=== PATIENT | male | born 1990 | race Two or more races ===

== ENCOUNTER 2017-06-28 09:42 | Observation (INO) | payer OTHER ==
--- NOTE | 2017-06-28 09:49 | EDPHY ---
H & P Stated Complaint: N/V/D periumbilical moe since ~7am today Time Seen by Provider: 06/28/17 09:48 HPI/ROS: HPI: This is a 26-year-old male who presents with Chief Complaint: N/V/D periumbilical pain since ~7 am today Location:GI Quality:nausea, vomiting, diarrhea Duration: 5 hr ago Signs and Symptoms: no fever, + nausea, + vomiting, no hematemesis, no blood in stool, no abdominal bloating, + diarrhea, no back pain, no urinary symptoms, no testicular/groin pain, no indigestion, no chest pain, no shortness of breath Timing: Acute, constant, worsening Severity: Moderate to severe Context: Patient is generally healthy around 4:00 a.m. this morning he had sudden onset of nausea, with multiple episodes of vomiting followed by diarrhea up to 3 times, nonbloody in nature, and chills and fatigue. Within 1-2 hours he developed periumbilical cramping pain but within the last hour has moved to the right lower quadrant and become constant, moderate in intensity. Patient has no concerns of food poisoning. He is extremely worried it may be his appendix. Last meal was yesterday evening for dinner around 10:30 p.m. consisting of chips and guacamole. Modifying Factors: None Comment: ROS: see HPI Constitutional: No fever, no chills, no weight loss Eyes: No blurred vision Respiratory: No shortness of breath, no cough Cardiovascular: No chest pain, no palpitations Gastrointestinal: + nausea, + vomiting, + diarrhea, no hematemesis, no blood in stool Genitourinary: No dysuria, no blood in urine Extremities: No myalgias, no edema Neurologic: No weakness, no numbness Skin: No rashes, no petechiae Hematologic: No bruising, no bleeding MEDICAL/SURGICAL/SOCIAL HISTORY: Medical history: Generally healthy. Does not take any regular medications. Surgical history: Denies Social history: Student. CONSTITUTIONAL: awake and alert, no obvious distress HEENT: Atraumatic and normocephalic, PERRL, EOMI. Tympanic membranes clear. Oropharynx clear, no exudate and moist pink mucosa. Airway patent. No lymphadenopathy. No meningismus. Cardiovascular: Normal S1/S2, regular rate, regular rhythm, without murmur rub or gallop. PULMONARY/CHEST: Symmetrical and nontender. Clear to auscultation bilaterally. Good air movement. No accessory muscle usage. ABDOMEN: Soft, nondistended, moderate periumbilical and right lower quadrant tenderness, + rebound, + guarding, no peritoneal signs, no masses or organomegaly. No CVAT. EXTREMITIES: 2/2 pulses, strength 5/5, no deformities, no clubbing, no cyanosis or edema. NEUROLOGICAL: no focal neuro deficits. GCS 15. SKIN: Warm and dry, no erythema. no rash. Good capillary refill. Source: Patient Exam Limitations: No limitations - Personal History Current Tetanus/Diphtheria Vaccine: Unsure Current Tetanus Diphtheria and Acellular Pertussis (TDAP): Unsure - Medical/Surgical History Hx Asthma: No Hx Chronic Respiratory Disease: No Hx Diabetes: No Hx Cardiac Disease: No Hx Renal Disease: No Hx Cirrhosis: No Hx Alcoholism: No Hx HIV/AIDS: No Hx Splenectomy or Spleen Trauma: No Other PMH: denies. no previous surgeries - Social History Smoking Status: Current some day smoker Constitutional: Initial Vital Signs Temperature (C) 37.2 C 06/28/17 09:45 Heart Rate 78 06/28/17 09:45 Respiratory Rate 18 06/28/17 09:45 Blood Pressure 102/88 H 06/28/17 09:45 O2 Sat (%) 95 06/28/17 09:45 O2 Delivery Mode Room Air Allergies/Adverse Reactions: No Known Allergies Allergy (Unverified 06/28/17 09:45) Home Medications: Medication Instructions Recorded NK [No Known Home Meds] 06/28/17 Medical Decision Making ED Course/Re-evaluation: Labs, IV fluids, urinalysis, IV medications, limited abdominal ultrasound to evaluate for appendicitis Given 2 L normal saline, 0.5 mg IV Dilaudid, IV Zofran and IV Invanz with adequate relief of pain Labs reviewed: WBC 16 K with left shift Called by Radiology who advises that ultrasound shows appendicitis measuring at 1 cm noncompressible. 1050: ED decision to consult. Spoke with General surgery, Dr. Crawford, who kindly agrees to consult on patient and take to the operating room. Requests 1 g of Invanz. This patient was seen under the supervision of my secondary supervising physician. I evaluated care for this patient independently. Differential Diagnosis: Abdominal pain including but not limited to appendicitis, gastroenteritis, gastritis and urinary tract infection. - Data Points Laboratory Results: Laboratory Results 06/28/17 09:57 06/28/17 09:57 06/28/17 06/28/17 09:57 09:57 WBC 16.08 10^3/uL H 10^3/uL (3.80-9.50) RBC 5.68 10^6/uL 10^6/uL (4.40-6.38) Hgb 14.5 g/dL g/dL (13.7-17.5) Hct 43.2 % % (40.0-51.0) MCV 76.1 fL L fL (81.5-99.8) MCH 25.5 pg L pg (27.9-34.1) MCHC 33.6 g/dL g/dL (32.4-36.7) RDW 13.7 % % (11.5-15.2) Plt Count 237 10^3/uL 10^3/uL (150-400) MPV 10.7 fL fL (8.7-11.7) Neut % (Auto) 84.6 % H % (39.3-74.2) Lymph % (Auto) 7.3 % L % (15.0-45.0) Dooly % (Auto) 7.3 % % (4.5-13.0) Eos % (Auto) 0.1 % L % (0.6-7.6) Baso % (Auto) 0.4 % % (0.3-1.7) Nucleat RBC Rel Count 0.0 % % (0.0-0.2) Absolute Neuts (auto) 13.61 10^3/uL H 10^3/uL (1.70-6.50) Absolute Lymphs (auto) 1.18 10^3/uL 10^3/uL (1.00-3.00) Absolute Monos (auto) 1.17 10^3/uL H 10^3/uL (0.30-0.80) Absolute Eos (auto) 0.01 10^3/uL L 10^3/uL (0.03-0.40) Absolute Basos (auto) 0.06 10^3/uL 10^3/uL (0.02-0.10) Absolute Nucleated RBC 0.00 10^3/uL 10^3/uL (0-0.01) Immature Gran % 0.3 % % (0.0-1.1) Immature Gran # 0.05 10^3/uL 10^3/uL (0.00-0.10) Sodium 139 mEq/L mEq/L (135-145) Potassium 4.7 mEq/L mEq/L (3.5-5.2) Chloride 104 mEq/L mEq/L (97-110) Carbon Dioxide 22 mEq/l mEq/l (22-31) Anion Gap 13 mEq/L mEq/L (8-16) BUN 15 mg/dL mg/dL (7-23) Creatinine 0.8 mg/dL mg/dL (0.7-1.3) Estimated GFR > 60 Glucose 117 mg/dL H mg/dL (70-100) Calcium 9.9 mg/dL mg/dL (8.5-10.4) Total Bilirubin 1.0 mg/dL mg/dL (0.1-1.4) Conjugated Bilirubin 0.5 mg/dL mg/dL (0.0-0.5) Unconjugated Bilirubin 0.5 mg/dL mg/dL (0.0-1.1) AST 41 IU/L IU/L (17-59) ALT 31 IU/L IU/L (21-72) Alkaline Phosphatase 70 IU/L IU/L (38-126) Total Protein 8.0 g/dL g/dL (6.3-8.2) Albumin 5.1 g/dL H g/dL (3.5-5.0) Lipase 169 IU/L IU/L (23-300) Specimen Hemolysis 130 Medications Given: Discontinued Medications Hydromorphone HCl (Dilaudid) 0.5 mg IVP EDNOW ONE Stop: 06/28/17 09:52 Last Admin: 06/28/17 10:03 Dose: 0.5 mg Sodium Chloride (Ns) 1,000 mls @ 0 mls/hr IV EDNOW ONE; Wide Open PRN Reason: Protocol Stop: 06/28/17 09:52 Last Admin: 06/28/17 10:03 Dose: 1,000 mls Ondansetron HCl (Zofran) 4 mg IVP EDNOW ONE Stop: 06/28/17 09:52 Last Admin: 06/28/17 10:03 Dose: 4 mg Departure - Departure Disposition: To OP Cath/Surgery Clinical Impression: Appendicitis Qualifiers: Appendicitis type: acute appendicitis Acute appendicitis type: with localized peritonitis Qualified Code(s): K35.3 - Acute appendicitis with localized peritonitis Condition: Fair
[2017-06-28] MEDS ORDERED: HYDROmorphONE/DILAUDID 1 MG/ML INJ IVP ONE ×2 (09:51→11:59)
[2017-06-28] MEDS ORDERED: ONDANSETRON 4 MG/2 ML VIAL IVP ONE ×2 (09:51→12:13)
[2017-06-28] MEDS ORDERED: NS 1,000 ML IV ONE ×3 (09:51→10:58)
[2017-06-28 10:12] LABS: PLATELET COUNT 237 10^3/uL (150-400)
[2017-06-28] MEDS ORDERED: ERTAPENEM 1 GM VIAL IM ONE (10:59)
[2017-06-28] MEDS ORDERED: ERTAPENEM 1 GM VIAL IV ONE (11:16)
[2017-06-28] MEDS ORDERED: HYDROmorphONE/DILAUDID 1 MG/ML INJ IVP PRN (12:22)
[2017-06-28] MEDS ORDERED: ONDANSETRON 4 MG/2 ML VIAL IVP PRN ×2 (12:22→17:07)
--- NOTE | 2017-06-28 13:02 | GHP ---
[f rep st] PREOP HISTORY AND PHYSICAL DATE OF ADMISSION: 06/28/2017 ADMITTING DIAGNOSIS: Acute appendicitis with appendicolith, Sickle Cell trait, COATS syndrome HISTORY: The patient is a 26-year-old white male, who was in his usual state of good health until 5:00 am when he was awoken from sleep. He had an urge to move his bowels. He also vomited. He had the onset of epigastric pain which was sharp and cramping. This continued as a cycle every 20-30 minutes, bowel movement and vomiting. Became worse and worse. Approximately 9:30 this morning , it moved to the right lower quadrant. He then presented to the emergency room. An ultrasound showed a noncompressible tubular structure in the right lower quadrant. His white count was 16.8, 85% neutrophils. There is no history of recent upper respiratory tract infection. He has had some diarrhea in the past 2 weeks. There is no history of inflammatory bowel disease, though he does have a cousin who may have Crohn's. There are no prior similar abdominal symptoms, though he did have abdominal pain which prompted an evaluation before age 11. Nothing was found. He has had no abdominal surgery. He has had no antibiotics in the last 6 months or travel outside the [place], except for a very brief (less than 24 hours) time in [place]. SOCIAL HISTORY: He does not smoke cigarettes, but does smoke marijuana approximately 2 times per week. He does not drink much, but admits to 5-6 beers for the [employer]. ALLERGIES: There is a question of a penicillin allergy from a scratch test. This was not disclosed initially, and he did receive Invanz, but so far had not appeared to have any reaction to the Invanz. He does have nausea with post anesthesia. MEDICATIONS: He is not currently take any medications. 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 He has had cryo surgery twice. He has had laser surgery once. He has been treated for macular holes twice. His vision is 20/150 in his right eye and there is no further intervention suggested. There is no history of glaucoma. He does not wear glasses. Other surgeries have included a tonsillectomy and adenoidectomy. He has had myringotomy tubes twice. He had a failed root canal which resulted in an apiectomy. He has had wisdom teeth extractions. PAST MEDICAL HISTORY: No history of rheumatic fever, tuberculosis, hepatitis, or transfusions. REVIEW OF SYSTEMS: He has had 1 concussion. He is factor V Leiden test negative. There are no limits on his activities. No history of steroid use. He is sickle cell trait positive. FAMILY HISTORY: His mother is 54 years old. She did have a stroke. She is Factor V Leiden positive. His father is 54 and alive and well, but perhaps prediabetic. He has an older sister who is 27, and a younger sister who is 23, who may have Brina's thyroiditis. There is no history of bleeding disorders. He does have his nausea with anesthesia. There is the family history of the coagulation issue with Factor V Leiden. PHYSICAL EXAMINATION: GENERAL: He is awake and alert. He is in mild distress. HEENT: His skull is normocephalic and atraumatic. NECK: Soft, nontender without cervical or supraclavicular lymphadenopathy. There is no axillary or inguinal lymphadenopathy. His thyroid is not enlarged. LUNGS: Clear to auscultation. CARDIAC: Shows S1, S2 to be normal with a normal split of S2. There are no murmurs, rubs, or gallops. ABDOMEN: Tender with cough, just inferior to McBurney's point at a level of 8/10. Psoas sign is negative. Obturator sign is positive. Bowel sounds are distinctly hypoactive. He is tender to palpation as follows: Left upper quadrant 4/10, left mid abdomen 5, left lower quadrant, 5, epigastrium 4, periumbilical area 6, suprapubic area 7, right upper quadrant 5, right mid abdomen 6, right lower quadrant 7. LABORATORY DATA: As mentioned above. His white blood cell count is 16.8. Note is made his hematocrit is 43. His MCV is low at 76. His MCHC is low at 25. His chemistry showed glucose elevated at 117. Urinalysis is still pending. The ultrasound report does show an enlarged noncompressible appendix with appendicolith at its base. PLAN: Will plan a laparoscopic appendectomy. /[id number]/MODL MTDD
[2017-06-28] MEDS ORDERED: LR 1,000 ML IV ONE (13:59)
[2017-06-28] MEDS: LR 1,000 ML IV SCH ×2 (14:02→20:30)
--- NOTE | 2017-06-28 14:42 | PDANEPAE ---
ANE History of Present Illness acute appendicitis acute appy ANE Past Medical History - Cardiovascular History Hx Hypertension: No Hx Arrhythmias: No Hx Chest Pain: No Hx Coronary Artery / Peripheral Vascular Disease: No Hx CHF / Valvular Disease: No Hx Palpitations: No - Pulmonary History Hx COPD: No Hx Asthma/Reactive Airway Disease: No Hx Recent Upper Respiratory Infection: No Hx Oxygen in Use at Home: No Hx Sleep Apnea: No - Endocrine History Hx Diabetes: No Hypothyroid: No Hyperthyroid: No Obesity: no - Renal History Hx Renal Disorders: No - Liver History Hx Hepatic Disorders: No - Neurological & Psychiatric Hx Hx Neurological and Psychiatric Disorders: No - Chronic Pain History Chronic Pain: No ANE Review of Systems Review of Systems: - Exercise capacity Exercise capacity: >=4 METS - Systems Constitutional: Reports: chills, malaise Gastrointestinal: Reports: abdominal pain ANE Patient History - Allergies Allergies/Adverse Reactions: Penicillins Allergy (Verified 06/28/17 11:18) - Home Medications Home Medications: Herbals/Supplements -Info Only 1 ea PO DAILY 06/28/17 [Last Taken Unknown] - NPO status NPO Status: no food or drink >8 hours NPO Since - Liquids (Date): 06/27/17 NPO Since - Liquids (Time): 23:00 NPO Since - Solids (Date): 06/27/17 NPO Since - Solids (Time): 20:00 - Anes Hx Anes Hx: post operative nausea - Smoking Hx Smoking Status: Current some day smoker Marijuana use: Yes - Alcohol Use Alcohol Use: Occasionally - Family Anes Hx Family Anes Hx: none ANE Labs/Vital Signs - Labs Result Diagrams: 06/28/17 09:57 06/28/17 09:57 - Vital Signs Vital Signs: reviewed preoperatively; see RN documention for details Blood Pressure: 114/80 Heart Rate: 66 Respiratory Rate: 18 O2 Sat (%): 95 Height: 187.96 cm Weight: 79.379 kg ANE Physical Exam - Airway Neck exam: FROM Mallampati Score: Class 1 - Pulmonary Pulmonary: no respiratory distress - Cardiovascular Cardiovascular: regular rate and rhythym - ASA Status ASA Status: II, E ANE Anesthesia Plan Anesthesia Plan: general endotracheal anesthesia
[2017-06-28] MEDS ORDERED: MIDAZOLAM 2 MG/2 ML VIAL IVP ONE (14:43)
[2017-06-28] MEDS ORDERED: fentaNYL 100 MCG/2 ML INJ ONE ×5 (14:54→17:09)
[2017-06-28] MEDS: fentaNYL 100 MCG/2 ML INJ IVP PRN ×2 (15:01→17:10)
[2017-06-28] MEDS ORDERED: HEPARIN 5,000 UNIT/0.5 ML SYR ONE (15:35)
[2017-06-28] MEDS ORDERED: BACITRACIN 50,000 UNITS/10 ML SYR IRR ONE (15:36)
[2017-06-28] MEDS ORDERED: LIDOCAINE 2% 5 ML SDV ONE (15:46)
[2017-06-28] MEDS ORDERED: PROPOFOL 200 MG/20 ML VIAL ONE (15:46)
[2017-06-28] MEDS ORDERED: ROCURONIUM 50 MG/5 ML VIAL ONE (15:46)
[2017-06-28] MEDS ORDERED: KETOROLAC 30 MG/1 ML SDV ONE (16:17)
[2017-06-28] MEDS ORDERED: DEXAMETHASONE 4 MG/ML VIAL ONE ×2 (16:17→16:18)
[2017-06-28] MEDS ORDERED: ONDANSETRON 4 MG/2 ML VIAL ONE (16:18)
[2017-06-28] MEDS ORDERED: SUGAMMADEX SODIUM 200 MG/2 ML VIAL IVP ONE (16:44)
[2017-06-28] MEDS ORDERED: HYDROCODONE/APAP 5/325 TAB PO PRN (17:07)
[2017-06-28] MEDS ORDERED: NALOXONE HCL 0.4 MG/ML INJ IVP PRN (17:07)
[2017-06-28] MEDS ORDERED: PROMETHAZINE HCL 25 MG/ML INJ IVP PRN (17:07)
[2017-06-28] MEDS ORDERED: OXYCODONE/APAP 5/325 TAB PO PRN (17:07)
--- NOTE | 2017-06-28 17:07 | POSTANESTH ---
Post Anesthetic Evaluation Cardiovascular Status: Normal, Stable Respiratory Status: Normal, Stable Level of Consciousness/Mental Status: Can Participate in Eval Pain Control: Adequate, Prn Tx Ordered Nausea/Vomiting Control: Adequate, Prn Tx Ordered Complications Possibly Related to Anesthesia: None Noted
[2017-06-28] MEDS ORDERED: HYDROmorphONE/DILAUDID 1 MG/ML INJ ONE (17:13)
--- NOTE | 2017-06-28 17:14 | POSTOPPROG ---
Post Op Note Date of Operation: 06/28/17 Surgeon: Coleman Crawford Anesthesia: GET(General Endotracheal) Pre-op Diagnosis: acute appendicitis with appendicolith Post-op Diagnosis: acute unruptured appendicitis with appendicolith Indication: acute appendicitis with appendicolith Procedure: laparoscopic appendectomy Findings: acute unruptured appendicitis with appendicolith Inf/Abcess present in the surg proc area at time of surgery?: No EBL: Minimal Total fluids administered: 650 Complications: none Specimen(s): appendix
[2017-06-28] MEDS: HYDROmorphONE/DILAUDID 1 MG/ML INJ IVP PRN ×2 (17:22→17:39)
[2017-06-28] MEDS ORDERED: fentaNYL 100 MCG/2 ML INJ IVP PRN (17:25)
[2017-06-28] MEDS: ACETAMINOPHEN 500 MG TAB PO SCH ×2 (17:52→20:25)
[2017-06-28] MEDS: KETOROLAC 15 MG/1 ML SDV IVP SCH (17:55)
--- NOTE | 2017-06-28 19:09 | GOP ---
[f rep st] OPERATIVE REPORT DATE OF OPERATION: 06/28/2017 SURGEON: Coleman Crawford MD ANESTHESIA: General endotracheal. PREOPERATIVE DIAGNOSIS: Acute appendicitis with appendicolith. POSTOPERATIVE DIAGNOSIS: Acute unruptured appendicitis with appendicolith. PROCEDURE PERFORMED: Laparoscopic appendectomy. FINDINGS: Acute unruptured appendicitis with appendicolith. SPECIMENS: Appendix ESTIMATED BLOOD LOSS: Minimal. INDICATIONS: Acute appendicitis with appendicolith. DESCRIPTION OF PROCEDURE: The patient was placed on the operating table in supine position. After induction of adequate general endotracheal anesthesia, the patient was carefully clipped, prepped, and draped. A surgical time-out was carried out and agreed to by all members of the operative team. Curvilinear incision was planned at the umbilicus. Transverse incision was planned in the suprapubic area. Oblique incision was planned in the left lower quadrant. The skin was incised at all 3 sites. At the umbilical level, the curvilinear incision at the umbilicus was deepened. This was done with a spreading technique to expose the anterior rectus sheath which was elevated between Allis clamps. It was divided in the midline and a pursestring of #0 PDS was placed. The peritoneum was entered. An 11/12 mm disposable Shereen trocar was positioned. Intra-abdominal insufflation was carried out to 15 mmHg. 5 mm ports were placed both in the left lower quadrant and the suprapubic areas. The appendix was identified. Omentum had been wrapped around it and was adherent to it. This was carefully stripped back. The mesoappendix was grasped and the appendix was elevated. The mesoappendix was divided with the Harmonic scalpel down to the appendiceal base. A powered 35 mm Endo-DENISA stapler was used to transect the appendix with a cuff of cecum. The appendix was delivered in an EndoCatch bag. There was 1 bleeding point on the transection line. This was carefully elevated with a right-angle grasper and an Endoloop was applied. This provided complete hemostasis. Irrigation with heparin and Ancef-containing irrigant was carried out. The small bowel was carefully run for a distance of 3 feet. There was very minimal mesenteric adenitis identified. There was no evidence of a Meckel diverticulum. The abdomen was still irrigated with Ancef and heparin-containing irrigant. All ports removed under direct vision. Inverted simple suture #0 PDS was placed in the midpoint of the midline infraumbilical fascial incision. This was tied. The pursestring for this wound was now tied. The subcutaneous tissue was well irrigated. Hemostasis found to be excellent. At all incisions , inverted simple sutures of 4-0 Vicryl were placed everting the skin. Mastisol and Steri-Strips were positioned. Band-Aids were positioned. The patient was transferred to recovery in stable and satisfactory condition. FLUIDS: 650 cc. COMPLICATIONS: None. /[id number]/MODL MTDD
[2017-06-29] MEDS: KETOROLAC 15 MG/1 ML SDV IVP SCH ×3 (00:56→13:24)
[2017-06-29] MEDS: ACETAMINOPHEN 500 MG TAB PO SCH ×2 (05:23→13:25)
[2017-06-29 07:49] VITALS: RESP 12
[2017-06-29 11:20] VITALS: BP 114/68; PULSE 77; TEMP 98.1; O2SAT 96
--- NOTE | 2017-06-29 12:46 | SOAPPROG ---
SOAP Progress Note Assessment/Plan: pod#1 06/29/17 12:43 Assessment: Doing well. Eating, passing gas, pain controlled Plan: Home today Subjective: No complaints Objective: Vital Signs Temp Pulse Resp BP Pulse Ox 36.7 C 77 12 114/68 96 06/29/17 11:18 06/29/17 11:18 06/29/17 11:18 06/29/17 11:18 06/29/17 11:18 06/28/17 06/29/17 06/30/17 05:59 05:59 05:59 Intake Total 4070 Output Total 5 Balance 4065 - Time Spent With Patient Time Spent With Patient: 15 Physical Exam - Physical Exam General Appearance: WD/WN, alert, no apparent distress EENT: PERRL/EOMI, normal ENT inspection, pharynx normal, TMs normal Neck: non-tender, full range of motion, supple, normal inspection Respiratory: chest non-tender, lungs clear, normal breath sounds Cardiac/Chest: normal peripheral pulses, regular rate, rhythm Abdomen: normal bowel sounds, non-tender, soft, other (incisions clean and dry, steristrips in place) Male Genitalia: deferred Rectal: deferred Back: Normal inspection Skin: normal color, warm/dry Extremities: normal range of motion, non-tender, normal inspection, normal capillary refill Neuro/Psych: no motor/sensory deficits, alert, normal mood/affect, oriented x 3 ICD10 Worksheet Patient Problems: Problems Problem Status Onset Appendicitis Acute
[2017-06-29] MEDS ORDERED: FLU VACC QS 2017-18 (3YR+)/PF 0.5 ML SYR (FLUARIX QUAD) IM ONE (14:00)
[2017-06-29] MEDS ORDERED: PNEUMOCOCCAL 0.5ML VACCINE VIAL IM ONE (14:00)
--- NOTE | 2017-06-29 14:02 | GDS ---
[f rep st] DISCHARGE SUMMARY DISCHARGE DIAGNOSES: 1. Acute appendicitis with appendicolith. 2. Sickle cell trait. 3. George' syndrome. DISPOSITION AT DISCHARGE: Improved. Disposition is home. DIET: Unrestricted, although I have suggested that he avoid constipating foods , such as bananas, rice, applesauce, and cheese. Dietary texture is normal. MEDICATIONS: He will take Tylenol 1000 mg every 8 hours, scheduled. He will take Toradol 10 mg p.o. q.6h, scheduled x4 days. He will use Dilaudid 2 mg every 4 hours as needed for breakthrough pain. ACTIVITY: For 3 weeks, he is to lift less than 10 pounds. He is to shower only. Keep the Steri-Strips in place. He is to take a multivitamin with zinc, copper, and C. He is to watch for signs of infection. That has been described as 1) Superficial: Warmth, redness, swelling, and tenderness, or 2) Deep space: Fevers, chills, malaise, bloating, or abdominal pain. He will follow up with Dr. Reese Vinson or his colleagues in 10 days to 2 weeks. HOSPITAL COURSE: The patient was admitted and taken to the operating room, where an unruptured appendix was removed successfully. He is doing well on postoperative day #1, passing gas, eating, and has his pain in good control. His wounds are clean and dry. /[id number]/MODL MTDD
== END 2017-06-29 14:56 | disposition home or self-care (01) ==
LOC: INTOOBSV 12:22 → F3E 18:04
PROVIDERS: ADMIT Surgery; ATTEND Surgery
PROC: 0DTJ4ZZ Resection of Appendix, Percutaneous Endoscopic Approach (ICD-10-PCS; principal; 2017-06-28 15:30)
DX: K35.80 Unspecified acute appendicitis (principal); D57.3 Sickle-cell trait; H35.029 Exudative retinopathy, unspecified eye; F17.200 Nicotine dependence, unspecified, uncomplicated
CPT/HCPCS: 44970; 76705; 90471; 96361; 96374; 96375; 96376; 99285; G0378; G0008; J1100; J1170; J1335; J1644; J1885; J2250; J2405; J2704; J3010